=== PATIENT | female | born 1965 | race Caucasian/White ===

== ENCOUNTER → 2023-08-08 | Outpatient (REF) ==
[~2023-08-08] MED LIST: FOLI1TAB; MILKSUS; NEUR300C; NEUR600T; NORT25CA2; PAXI40TA; PREG100CA; SKEL800T5; SYNT175T; VITA100027
== END ==
LOC: M PLAIMG 14:26
PROVIDERS: ATTEND Internal Medicine
DX: M51.36 Other intervertebral disc degeneration, lumbar region (principal); M41.86 Other forms of scoliosis, lumbar region